=== PATIENT | male | born 1990 | race Caucasian/White ===

== ENCOUNTER 2018-11-14 09:52 | Emergency (ER) | payer SELFPAY ==
[~2018-11-14] VITALS: Ht 167.6 cm; Wt 78.0 kg
[2018-11-14 10:05] VITALS: Ht 167.6 cm; Wt 78.0 kg
[2018-11-14] MEDS ORDERED: ONDANSETRON (ODT) 4 MG TAB ODT STA (11:24)
[2018-11-14] MEDS ORDERED: ACETAMINOPHEN 325 MG TAB PO ONE (11:30)
[2018-11-14] MEDS ORDERED: HYDROCODONE/APAP (5/325) TAB PO ONE ×2 (11:30→12:00)
[2018-11-14] MEDS ORDERED: KETOROLAC 60 MG INJ IM STA (13:46)
[2018-11-14] MEDS ORDERED: ONDA4TAB14 PO (14:19)
[2018-11-14] MEDS ORDERED: RANI150T35 PO (14:19)
--- NOTE | 2018-11-14 14:29 | ERD ---
ER Documentation Chief Complaint Chief Complaint LLQ PAIN RADIATES TO THE BACK HPI 28-year-old male patient with no significant past medical history presents the ED complaining of left lower quadrant abdominal pain that radiates to his back. States that when he sits, there is more pain. Reports that his abdomen feels like a burning sensation. Denies any chest pain, shortness of breath, nausea, vomiting, diarrhea, neck stiffness, dysuria, urgency, frequency, hematuria. He drinks an unknown amount of beers, 3 times a week. Denies any smoking, drug use. Denies any abdominal trauma. ROS All systems reviewed and are negative except as per history of present illness. Medications Home Meds Active Scripts Ondansetron (Ondansetron Odt) 4 Mg Tab.rapdis, 4 MG PO Q6H PRN for NAUSEA AND/OR VOMITING, #10 TAB Prov:RIVAS SHARP PA-C 11/14/18 Ranitidine Hcl* (Zantac*) 150 Mg Tablet, 150 MG PO BID PRN for EPIGASTRIC PAIN, #30 TAB Prov:RIVAS SHARP PA-C 11/14/18 Allergies Allergies: Coded Allergies: No Known Allergy (Unverified , 11/14/18) PMhx/Soc Medical and Surgical Hx: pt denies Medical Hx, pt denies Surgical Hx FmHx Family History: No diabetes, No coronary disease Physical Exam Vitals Vital Signs Date Temp Pulse Resp B/P (MAP) Pulse Ox O2 O2 Flow FiO2 Time Delivery Rate 11/14/18 98.6 55 19 125/78 99 10:05 (94) Physical Exam Const: [id number], well-nourished. In no acute distress. Head: Atraumatic, normocephalic Eyes: Normal Conjunctiva without injection. No purulent discharge. ENT: Normal external ear, nose. Moist oropharynx without tonsillar exudates. Non-erythematous pharynx. Uvula midline. No drooling. No trismus. Neck: No cervical midline tenderness. Full range of motion. No meningismus. No cervical lymphadenopathy. No JVD. Resp: Clear to auscultation bilaterally. No wheezing, rhonchi, rales, or crackles. No accessory muscle use. No retractions. Cardio: Regular rate and rhythm. No murmurs, rubs or gallops. Abd: Soft, nontender, non distended. Normal bowel sounds. No palpable masses. No rebound tenderness. No guarding. Negative McBurney's point. Negative psoas sign. Negative obturator sign. Skin: No petechiae or rashes Back: No midline tenderness. No CVA tenderness. Ext: No cyanosis, or edema. Neur: Awake and alert. Normal gait. Normal coordination. Psych: Normal Mood and Affect Result Diagram: 11/14/18 1134 11/14/18 1134 Results 24 hrs Laboratory Tests Test 11/14/18 11:34 White Blood Count 6.2 10^3/ul Red Blood Count 4.41 10^6/ul Hemoglobin 12.9 g/dl Hematocrit 39.4 % Mean Corpuscular Volume 89.3 fl Mean Corpuscular Hemoglobin 29.3 pg Mean Corpuscular Hemoglobin Concent 32.7 g/dl Red Cell Distribution Width 12.7 % Platelet Count 328 10^3/UL Mean Platelet Volume 9.8 fl Immature Granulocytes % 0.300 % Neutrophils % 49.1 % Lymphocytes % 39.0 % Monocytes % 7.3 % Eosinophils % 3.7 % Basophils % 0.6 % Nucleated Red Blood Cells % 0.0 /100WBC Immature Granulocytes # 0.020 10^3/ul Neutrophils # 3.0 10^3/ul Lymphocytes # 2.4 10^3/ul Monocytes # 0.5 10^3/ul Eosinophils # 0.2 10^3/ul Basophils # 0.0 10^3/ul Nucleated Red Blood Cells # 0.0 10^3/ul Urine Color YELLOW Urine Clarity CLEAR Urine pH 5.0 Urine Specific [place] 1.025 Urine Ketones NEGATIVE mg/dL Urine Nitrite NEGATIVE mg/dL Urine Bilirubin NEGATIVE mg/dL Urine Urobilinogen NEGATIVE mg/dL Urine Leukocyte Esterase NEGATIVE Iman/ul Urine Hemoglobin NEGATIVE mg/dL Urine Glucose NEGATIVE mg/dL Urine Total Protein NEGATIVE mg/dl Sodium Level 141 mmol/L Potassium Level 4.3 mmol/L Chloride Level 105 mmol/L Carbon Dioxide Level 28 mmol/L Anion Gap 8 Blood Urea Nitrogen 19 mg/dl Creatinine 0.73 mg/dl Est Glomerular Filtrat Rate mL/min > 60 mL/min Glucose Level 94 mg/dl Calcium Level 9.3 mg/dl Total Bilirubin 0.3 mg/dl Direct Bilirubin 0.00 mg/dl Indirect Bilirubin 0.3 mg/dl Aspartate Amino Transf (AST/SGOT) 284 IU/L Alanine Aminotransferase (ALT/SGPT) 354 IU/L Alkaline Phosphatase 153 IU/L Total Protein 7.4 g/dl Albumin 4.6 g/dl Globulin 2.80 g/dl Albumin/Globulin Ratio 1.64 Lipase 142 U/L Current Medications Medications Dose Sig/Emily Start Time Status Last (Trade) Ordered Route PRN Stop Time Admin Dose Reason Admin 1 tab ONCE ONCE 11/14/18 Cancel Acetaminophen PO 11:30 / 11/14/18 11:31 Hydrocodone Bitart ([place] (5/325)) Ondansetron 4 mg ONCE STAT 11/14/18 DC 11/14/18 HCl (Zofran ODT 11:24 11:54 Odt) 11/14/18 11:27 650 mg ONCE ONCE 11/14/18 Cancel Acetaminophen PO 11:30 (Tylenol 11/14/18 11:31 Tab) 1 tab ONCE ONCE 11/14/18 DC 11/14/18 Acetaminophen PO 12:00 11:55 / 11/14/18 12:01 Hydrocodone Bitart ([place] (5/325)) Ketorolac 60 mg ONCE STAT 11/14/18 DC 11/14/18 Tromethamine IM 13:46 13:57 (Toradol) 11/14/18 13:47 Procedures/MDM 28-year-old male patient with no significant past medical history presents to ED complaining of left lower quadrant abdominal pain that radiates to his back. Patient is afebrile and nontoxic-appearing. Patient was further worked up with CBC, CMP, lipase, UA, CT of the abdomen pelvis without contrast. Patient's pain and symptoms have improved after treatment with 4 mg IM Toradol, [place] 5-325 mg, Zofran 4 mg. CBC: No leukocytosis. No e/o of systemic infection. No e/o anemia. CMP: No e/o severe acidosis, alkalosis, renal failure, diabetic ketoacidosis,elevated transaminitis Lipase within normal limits. Urine: No leukocyte esterase, no nitrites, no hematuria. IMPRESSION: 1. No calcific renal calculus or hydronephrosis. 2. Mild hepatomegaly and diffuse hepatic steatosis. Frontals include gastritis versus GERD. Patient likely has musculoskeletal pain back pain. Patient had some elevated transaminitis. Patient reports that he does drink alcohol, 3 times a week, unknown amount of beer is, therefore strictly instructed to follow-up with radio rigger for further evaluation and treatment of elevated of her enzymes. Low suspicion for testicular torsion, cholecystitis, choledocholithiasis, cholangitis, pancreatitis, appendicitis, bowel obstruction, ileus, volvulus, nephrolithiasis, pyelonephritis, hepatitis, perforated viscus, diverticulitis, abdominal hernia, acute abdomen, mesenteric ischemia or other emergent conditions. Patient is ambulating here in the ED without difficulty. Denies saddle anesthesia, numbness or tingling, urine or bowel incontinence, weakness. Low suspicion for cauda equina syndrome, cord compression, nephrolithiasis, aortic aneurysm, aortic dissection, epidural abscess, spinal hematoma, malignancy, pyelonephritis, or other emergent conditions. Diagnosis: Abdominal Pain, Back Pain Discharge medications: Zofran, Ranitidine Follow up with primary care physician in 1-2 days for referral to radio rigger. Instructed patient to return to the ED sooner for any worsening symptoms. Patient's questions were answered. Patient understood and agreed with discharge plan. Patient discharged stable. Departure Diagnosis: Primary Impression: Abdominal pain Abdominal location: unspecified location Qualified Codes: R10.9 - Unspecified abdominal pain Additional Impression: Back pain Back pain location: back pain in unspecified location Chronicity: unspecified Back pain laterality: unspecified Qualified Codes: M54.9 - Dorsalgia, unspecified Condition: Stable Patient Instructions: Abdominal Pain, Back Pain (Acute Or Chronic) Referrals: [facility] YOU HAVE RECEIVED A MEDICAL SCREENING EXAM AND THE RESULTS INDICATE THAT YOU DO NOT HAVE A CONDITION THAT REQUIRES URGENT TREATMENT IN THE EMERGENCY DEPARTMENT. FURTHER EVALUATION AND TREATMENT OF YOUR CONDITION CAN WAIT UNTIL YOU ARE SEEN IN YOUR DOCTORS OFFICE WITHIN THE NEXT 1-2 DAYS. IT IS YOUR RESPONSIBILITY TO MAKE AN APPOINTMENT FOR FOLOW-UP CARE. IF YOU HAVE A PRIMARY DOCTOR --you should call your primary doctor and schedule an appointment IF YOU DO NOT HAVE A PRIMARY DOCTOR YOU CAN CALL OUR PHYSICIAN REFERRAL HOTLINE AT IF YOU CAN NOT AFFORD TO SEE A PHYSICIAN YOU CAN CHOSE FROM THE FOLLOWING [facility] [address] [facility]. [facility] [address] [facility]. [facility] [address] [facility]. [facility] [address] [facility]. [facility] [address] [facility]. [facility]. [address] [facility]. [facility] YOU HAVE RECEIVED A MEDICAL SCREENING EXAM AND THE RESULTS INDICATE THAT YOU DO NOT HAVE A CONDITION THAT REQUIRES URGENT TREATMENT IN THE EMERGENCY DEPARTMENT. FURTHER EVALUATION AND TREATMENT OF YOUR CONDITION CAN WAIT UNTIL YOU ARE SEEN IN YOUR DOCTORS OFFICE WITHIN THE NEXT 1-2 DAYS. IT IS YOUR RESPONSIBILITY TO MAKE AN APPOINTMENT FOR FOLOW-UP CARE. IF YOU HAVE A PRIMARY DOCTOR --you should call your primary doctor and schedule and appointment IF YOU DO NOT HAVE A PRIMARY DOCTOR YOU CAN CALL OUR PHYSICIAN REFERRAL HOTLINE AT . IF YOU CAN NOT AFFORD TO SEE A PHYSICIAN YOU CAN CHOSE FROM THE FOLLOWING [facility] INSTITUTIONS: [facility] [address] [place] [address] [facility] [address] [place] [address] [facility] + [facility] [address] [place] [address] [facility]CIALTIES Additional Instructions: Llame al doctor MAANA y hetal zahra MARLI PARA DENTRO DE 2-3 BELTRÁN.Dgale a la secretaria que nosotros le instruimos hacer esta marli.Avise o llame si noonan condicin se empeora antes de la marli. Regresa aqui si peor o no mejor. RIVAS SHARP PA-C November 14, 2018 14:29
[2018-11-14 14:44] VITALS: BP 116/84; PULSE 58; RESP 20
== END 2018-11-14 14:50 | disposition home or self-care (01) ==
LOC: FTE 09:52
DX: M54.9 Dorsalgia, unspecified (principal)
CPT/HCPCS: 36415; 74176; 80053; 81003; 83690; 85025; 96372; 99285; J1885